=== PATIENT | female | born 1990 | race Caucasian/White ===

== ENCOUNTER 2020-12-24 22:25 | Observation (INO) | payer MEDICAID, SELFPAY ==
[2020-12-24 22:26] VITALS: BP 118/81; PULSE 75; RESP 16; TEMP 36.6; O2SAT 100; BMI 22.4
--- NOTE | 2020-12-24 22:59 | EDS_ITS ---
HPI History of Present Illness Chief Complaint: Substance Abuse Narrative Narrative: Patient presents for detox from opiates. Her last use of heroin was last night. She snorts and injects. Denies any infections. Has been through inpatient detox in June of last year. Denies . She does occasionally smoke marijuana otherwise no illicits. Denies alcohol use. Requesting detox that she has done on her own in the past [facility] Medical History (Updated 12/24/20 @ 23:12 by Xochitl Mcconnell) Fentanyl use disorder, mild, abuse Heroin abuse Hyperthyroidism Home Medications NK 12/24/20 [History Last Taken Unknown] Allergy/AdvReac Type Severity Reaction Status Date / Time tramadol AdvReac Rash Verified 12/24/20 22:28 Social History Smoking Status: Current every day smoker tobacco type: cigarettes ROS ROS ED ROS Narrative ROS General: Denies fever, chills, sweats Eyes: Denies visual changes, blurred vision, double vision ENT: Denies ear pain, rhinorrhea, sore throat Cardiovascular: Denies chest pain, palpitations, heart racing Respiratory: Denies dyspnea, cough, sputum, dyspnea on exertion, orthopnea,PND GI: Denies abdominal pain, nausea, vomiting, diarrhea, constipation, melena : Denies dysuria, hematuria, frequency Musculoskeletal: Denies myalgias, arthralgias, neck pain, back pain Skin: Denies rash, abscess, abrasions Neuro: Denies headache, weakness, paresthesia Psych: Denies depression, anxiety Endo: Denies polyuria, polydipsia, polyphagia Heme: Denies easy bruising, easy bleeding, lymphadenopathy Allergy: Denies hives, swelling EXAM Physical Exam Narrative Exam Narrative: Vital signs reviewed General: Well-nourished well-developed Head: Normocephalic atraumatic Eyes: Pupils equal round and reactive to light extraocular movements intact ENT: TMs clear no hemotympanum no trauma Neck: Nontender full range of motion Cardiovascular: Regular rate rhythm no murmurs normal S1-S2 Respiratory: No distress clear to auscultation bilaterally chest nontender Abdomen: Soft nontender nondistended normal bowel sounds no masses Back: Nontender no CVA tenderness Extremities: Nontender active range of motion ?4 extremities no trauma Skin: Track umanzor without infection Neuro alert oriented cranial nerves II through XII intact normal strength sensation reflexes Const Vital Signs: 12/24/20 22:26 12/25/20 00:03 Temperature 97.8 F 97.9 F Temperature Source Temporal Temporal Pulse Rate 75 73 Respiratory Rate 16 18 Blood Pressure 118/81 H 104/76 Blood Pressure Mean 93 85 Pulse Ox 100 98 Oxygen Delivery Method Room Air Room Air MDM MDM MDM Narrative Medical decision making narrative: Patient will undergo medical clearance with screening lab work. Will be discussed with detox and admitted if beds are available for opiate detox. There is availability. Urine drug screen showed positive opiates cocaine and cannabinoids. Otherwise lab work unremarkable. Patient will be admitted Lab Data Labs: Laboratory Results - last 24 hr 12/24/20 12/24/20 12/24/20 22:35 23:00 23:00 WBC 7.7 RBC 3.39 L Hgb 11.2 L Hct 33.9 L MCV 100.0 H MCH 33.0 H MCHC 33.0 RDW Std Deviation 54.0 H RDW Coeff of Georgi 14.6 Plt Count 331 MPV 8.9 Immature Gran % (Auto) 0.500 Neut % (Auto) 48.9 Lymph % (Auto) 39.7 [place] % (Auto) 7.4 Eos % (Auto) 2.7 Baso % (Auto) 0.8 Absolute Neuts (auto) 3.8 Absolute Lymphs (auto) 3.07 Nucleated RBC % 0 Sodium 138 Potassium 3.7 Chloride 104 Carbon Dioxide 32.0 Anion Gap 2 L BUN 12 Creatinine 1.04 H Estim Creat Clear Calc 60.77 Est GFR (MDRD) Af Amer 81 Est GFR (MDRD) Non-Af 67 BUN/Creatinine Ratio 11.5 Glucose 137 H Calcium 9.0 Serum , Qual Urine Opiates Screen POSITIVE H Urine Methadone Screen NEGATIVE Ur Barbiturates Screen NEGATIVE Ur Phencyclidine Scrn NEGATIVE Ur Amphetamines Screen NEGATIVE U Methamphetamin-MDMA NEGATIVE U Benzodiazepines Scrn NEGATIVE Urine Cocaine Screen POSITIVE H U Cannabinoids Screen POSITIVE H Ur Drug Screen Comment Ethyl Alcohol 12/24/20 12/24/20 23:00 23:00 WBC RBC Hgb Hct MCV MCH MCHC RDW Std Deviation RDW Coeff of Georgi Plt Count MPV Immature Gran % (Auto) Neut % (Auto) Lymph % (Auto) [place] % (Auto) Eos % (Auto) Baso % (Auto) Absolute Neuts (auto) Absolute Lymphs (auto) Nucleated RBC % Sodium Potassium Chloride Carbon Dioxide Anion Gap BUN Creatinine Estim Creat Clear Calc Est GFR (MDRD) Af Amer Est GFR (MDRD) Non-Af BUN/Creatinine Ratio Glucose Calcium Serum , Qual NEGATIVE Urine Opiates Screen Urine Methadone Screen Ur Barbiturates Screen Ur Phencyclidine Scrn Ur Amphetamines Screen U Methamphetamin-MDMA U Benzodiazepines Scrn Urine Cocaine Screen U Cannabinoids Screen Ur Drug Screen Comment Ethyl Alcohol 4.0 Discharge Plan Triage Chief Complaint: Substance Abuse ED Provider: Miguel Boyer Dx/Rx/DC Orders Clinical Impression: Opiate abuse, continuous Disposition Disposition: Acute Care Hospital [facility]
[2020-12-24 23:05] LABS: Absolute Lymphocyte Count 3.07 X10^3/uL (0.83-4.51); Absolute Neutrophil Count 3.8 X10^3/uL (2.0-7.7); Basophil# 0.06 X10^3/uL; Basophil% 0.8 % (0-1); Eosinophil# 0.21 X10^3/uL; Eosinophils% 2.7 % (0-5); Hematocrit 33.9 % (37-47); Hemoglobin 11.2 g/dL (12.0-15.0); Lymphocyte # 3.07 X10^3/ul (0.83-4.51); Lymphocyte % 39.7 % (19-41); Mean Platelet Vol. 8.9 fl (6.2-12.0); Monocyte# 0.57 X10^3/uL; Monocyte% 7.4 % (0-10); NRBC Flagged by Analyzer 0 % (0-5); Neutrophil # 3.78 X10^3/uL (2.7-7.7); Neutrophil % 48.9 % (47-70); Platelet Count 331 K/mm3 (150-450); RBC Distribution Width CV 14.6 % (11.6-14.6); Red Blood Count 3.39 M/mm3 (4.2-5.4); White Blood Count 7.7 K/mm3 (4.4-11.0)
[2020-12-24 23:25] LABS: Anion Gap 2 (5-15); BUN 12 mg/dL (7-18); BUN/Creat Ratio 11.5 RATIO (10-20); Chloride 104 mmol/L (98-107); Creatinine, Serum 1.04 mg/dL (0.55-1.02); EST Glomerular Filtration Rate 67 mL/min (>60); Est Glom Filt Rate - Afr Amer 81 mL/min (>60); Estimated Creatinine Clearance 60.77 ml/min; Glucose 137 mg/dL (74-106); Internal QC Validated? YES +Cl - CLEAR BKGD; Potassium 3.7 mmol/L (3.5-5.1); Pregnancy, Serum, hCG Quali. NEGATIVE Negative; Sodium Level 138 mmol/L (136-145)
[2020-12-25 00:03] VITALS: BP 104/76; PULSE 73; RESP 18; TEMP 36.6; O2SAT 98
[2020-12-25 00:10] LABS: Amphetamine Urine VISTA NEGATIVE (<1000 ng/mL); Barbiturate Urine VISTA NEGATIVE (< 200 ng/mL); Benzodiazepine Urine VISTA NEGATIVE (< 200 ng/mL); Cocaine Urine VISTA POSITIVE (< 300 ng/mL); Ecstacy Urine VISTA NEGATIVE (< 500 ng/mL); Methadone Urine VISTA NEGATIVE (< 300 ng/mL); PCP Urine VISTA NEGATIVE (< 25 ng/mL); THC Urine VISTA POSITIVE (< 50 ng/mL); Vista UDS pH Range 5
--- NOTE | 2020-12-25 00:26 | PCM.HP.STD ---
Documented by User: CAT Hill 12/25/20 00:35 HPI - General General Date of Admission: 12/25/20 HPI Narrative THIAGO GARCIA, is a 30 F who presents for detoxification from opioids. Patient states that she uses IV heroin and occasionally smokes marijuana along with smoking 1 pack/day of cigarettes. Patient tox screen positive for opiates, cocaine, cannabinoids. Patient states medical history includes hyperthyroidism although she is not currently taking medications for this. Patient reports runny nose, mild tremors, and chills. [facility] Medical History Fentanyl use disorder, mild, abuse Heroin abuse Hyperthyroidism Home Medications levothyroxine 150 mcg PO DAILY 12/25/20 [History Last Taken Unknown] Allergy/AdvReac Type Severity Reaction Status Date / Time tramadol AdvReac Rash Verified 12/24/20 22:28 Social History Smoking Status: Current every day smoker tobacco type: cigarettes ROS Constitutional Constitutional: Reports chills and excessive sweating; Denies anorexia, fever(s) or weakness ENT HEENT: Reports systems reviewed and no addt'l complaints, except as documented and rhinorrhea Cardiovascular Cardiovascular: Denies chest pain, edema or palpitations Respiratory/Chest Respiratory/Chest: Denies cough, shortness of breath at rest or shortness of breath with exertion Gastrointestinal Gastrointestinal: Denies abdominal pain, constipation, diarrhea, nausea or vomiting Genitourinary Genitourinary: Denies dysuria Musculoskeletal Musculoskeletal: Denies back pain or extremity pain Integumentary Integumentary: Denies dry skin Neurologic Neurologic: Denies abnormal gait, abnormal speech, confusion or dizziness Psychiatric Psychiatric: Denies anxiety or depression Endocrine Endocrinology: Denies change in body appearance Hematologic/Lymphatic Hematologic/Lymphatic: Denies easy bleeding or easy bruising Vital Signs Vital Signs Vital Signs: 12/24/20 22:26 12/25/20 00:03 Temperature 97.8 F 97.9 F Temperature Source Temporal Temporal Pulse Rate 75 73 Respiratory Rate 16 18 Blood Pressure 118/81 H 104/76 Blood Pressure Mean 93 85 Pulse Ox 100 98 Oxygen Delivery Method Room Air Room Air Weight Weight: 119 lb Body Mass Index (BMI) 22.4 Physical Exam Const alert and oriented x3 General Appearance: cooperative HEENT normocephalic and head/scalp atraumatic Neck supple and no JVD General: trachea midline Lymph Lymphatic: no lymphadenopathy noted Resp normal respiratory effort, normal air movement and clear to auscultation bilaterally Cardio regular rate, regular rhythm, S1 normal heart sound and S2 normal heart sound GI normal to inspection, nondistended, normoactive bowel sounds, soft to palpation and non-tender Extremity normal capillary refill and no clubbing, cyanosis or edema General Extremity: no tenderness to palpation of joints or extremities Skin General Skin Exam: no breakdown and turgor normal Lesions: no lesions Rashes: no rashes Neuro CN's II-XII intact bilaterally Psych thought process normal and cooperative Mood & Affect: anxious Lab / Micro Data Result Diagrams: 12/24/20 23:00 12/24/20 23:00 Labs: Laboratory Results - last 24 hr 12/24/20 12/24/20 12/24/20 22:35 23:00 23:00 WBC 7.7 RBC 3.39 L Hgb 11.2 L Hct 33.9 L MCV 100.0 H MCH 33.0 H MCHC 33.0 RDW Std Deviation 54.0 H RDW Coeff of Georgi 14.6 Plt Count 331 MPV 8.9 Immature Gran % (Auto) 0.500 Neut % (Auto) 48.9 Lymph % (Auto) 39.7 [place] % (Auto) 7.4 Eos % (Auto) 2.7 Baso % (Auto) 0.8 Absolute Neuts (auto) 3.8 Absolute Lymphs (auto) 3.07 Nucleated RBC % 0 Sodium 138 Potassium 3.7 Chloride 104 Carbon Dioxide 32.0 Anion Gap 2 L BUN 12 Creatinine 1.04 H Estim Creat Clear Calc 60.77 Est GFR (MDRD) Af Amer 81 Est GFR (MDRD) Non-Af 67 BUN/Creatinine Ratio 11.5 Glucose 137 H Calcium 9.0 Serum , Qual Urine Opiates Screen POSITIVE H Urine Methadone Screen NEGATIVE Ur Barbiturates Screen NEGATIVE Ur Phencyclidine Scrn NEGATIVE Ur Amphetamines Screen NEGATIVE U Methamphetamin-MDMA NEGATIVE U Benzodiazepines Scrn NEGATIVE Urine Cocaine Screen POSITIVE H U Cannabinoids Screen POSITIVE H Ur Drug Screen Comment Ethyl Alcohol 12/24/20 12/24/20 23:00 23:00 WBC RBC Hgb Hct MCV MCH MCHC RDW Std Deviation RDW Coeff of Georgi Plt Count MPV Immature Gran % (Auto) Neut % (Auto) Lymph % (Auto) [place] % (Auto) Eos % (Auto) Baso % (Auto) Absolute Neuts (auto) Absolute Lymphs (auto) Nucleated RBC % Sodium Potassium Chloride Carbon Dioxide Anion Gap BUN Creatinine Estim Creat Clear Calc Est GFR (MDRD) Af Amer Est GFR (MDRD) Non-Af BUN/Creatinine Ratio Glucose Calcium Serum , Qual NEGATIVE Urine Opiates Screen Urine Methadone Screen Ur Barbiturates Screen Ur Phencyclidine Scrn Ur Amphetamines Screen U Methamphetamin-MDMA U Benzodiazepines Scrn Urine Cocaine Screen U Cannabinoids Screen Ur Drug Screen Comment Ethyl Alcohol 4.0 Assessment & Plan Assessment/Plan (1) Opiate abuse, continuous: PLAN: 1. Opiate abuse -Admit to [facility] as part of [facility] program -Subutex taper ordered along with supportive medications for withdrawal -Vital signs per protocol -Oxygen therapy per protocol -Consult case management for coordination with [facility] outpatient treatment program 2. Tobacco abuse -NicoDerm patch daily ordered -Inpatient smoking cessation ordered 3. Hyperthyroidism -Patient currently does not take medications will check a TSH, T3 and T4 level 4. Marijuana use DVT prophylaxis-ambulation, no pharmacological prophylaxis indicated. This patient was seen by CAT Hill under the supervision of Dr. Strickland. Documented by User: Dr. Pedro Luis Strickland, 12/25/20 01:21 HPI - General General Date of Admission: 12/25/20 [facility] Medical History Fentanyl use disorder, mild, abuse Heroin abuse Hyperthyroidism Home Medications levothyroxine 150 mcg PO DAILY 12/25/20 [History Last Taken Unknown] Allergy/AdvReac Type Severity Reaction Status Date / Time tramadol AdvReac Rash Verified 12/24/20 22:28 Social History Smoking Status: Current every day smoker tobacco type: cigarettes Lab / Micro Data Result Diagrams: 12/24/20 23:00 12/24/20 23:00 Addendum Addendum: Patient was seen and examined today independently of Maximino Whitt, she came to the emergency room today at [facility] requesting services for opioid withdrawal, patient uses IV heroin, she is used illicit drugs since she was around 22 years old starting first with oral opiates and then progressing to IV heroin. Patient denies current amphetamine or methamphetamine usage, she denies alcohol intake currently. Patient last used fentanyl yesterday, she injects fentanyl. Patient is having some anxiety, runny nose, and some body aches at this time. Patient states that she has been through detox services before but never followed through as an outpatient the last time she went through detox. On examination she appeared mildly restless and anxious, she does not appear to be in any distress. Vital signs as documented. Skin warm and dry and without overt rashes. Neck without JVD, thyroid appears normal, trachea is midline, neck is supple. Lungs clear, normal air movement was noted. Heart exam notable for regular rhythm, normal sounds and absence of murmurs, rubs or gallops. Abdomen unremarkable and without evidence of organomegaly, masses, or abdominal aortic enlargement, bowel sounds are present in all 4 quadrants, no abdominal tenderness was noted. Extremities nonedematous, no cyanosis was noted, no clubbing was noted. Neuro: Cranial nerves II through XII are grossly intact, no focal motor deficits were noted, sensation to light touch and pinprick is intact, motor exam 5/5 throughout. Psych: Patient is alert and oriented x3, she does not appear anxious or depressed, she does not appear agitated. I have reviewed Maximino Whitt's history and physical including endorse it, patient will be admitted to [facility] for acute opioid withdrawal, orders were entered using the opioid withdrawal order set. Visit Charges Inpatient E&M: 61219 Init Hosp L3
[2020-12-25 00:36] VITALS: BP 93/68; PULSE 62; RESP 12; TEMP 36.4; O2SAT 100; BMI 21.9
[2020-12-25 02:09] LABS: T3 Total - Triiodothyronine 0.11 ng/mL (0.6-1.81)
[2020-12-25 04:02] LABS: T4 Total, Thyroxin 0.5 ug/dL (4.8-13.9)
[2020-12-25] MEDS: Buprenorphine HCl 2 MG TAB.SUBL SL ×3 (04:22→21:06)
[2020-12-25 05:41] VITALS: BP 92/64; PULSE 67; RESP 12; TEMP 36.7; O2SAT 97
[2020-12-25] MEDS: Gabapentin 300 MG Capsule PO ×2 (06:49→21:08)
[2020-12-25] MEDS: Ibuprofen 600 MG Tablet PO ×2 (08:51→21:07)
[2020-12-25] MEDS: Dicyclomine 10 MG Capsule 20 MG PO ×2 (08:51→21:06)
[2020-12-25] MEDS: hydrOXYzine PAM 25 MG Capsule 50 MG PO ×3 (08:52→23:23)
--- NOTE | 2020-12-25 09:14 | ADDICTION ---
This sba underwriter attempted to meet with PT. PT initially awoke to verbal queuing, however, fell asleep while this sba underwriter was explaining the program. She would not rouse to verbal queuing after falling back to sleep. This sba underwriter will attempt to meet with PT on 12/26/20.
--- NOTE | 2020-12-25 11:03 | PN.HOSP_ITS ---
Documented by User: Allison Christie SPREADER OPERATOR, SPREADER OPERATOR-C 12/25/20 11:19 Subjective Subjective Patient seen and examined. Drowsy during assessment, awakens briefly however falls asleep during conversation. States she feels tired and crappy. Objective Data Objective Data Vital Signs: Vital Signs Temp Pulse Resp BP Pulse Ox 98.0 F 67 12 92/64 97 12/25/20 05:41 12/25/20 05:41 12/25/20 05:41 12/25/20 05:41 12/25/20 05:41 Oxygen Delivery Method Room Air Weight: 115 lb 15.41 oz Body Mass Index (BMI) 21.9 Intake & Output: Intake and Output for Last 24 Hours 12/23/20 12/24/20 12/25/20 23:59 23:59 23:59 Intake Total 220 / 220 Balance 220 / 220 Lab / Micro Data Result Diagrams: 12/24/20 23:00 12/24/20 23:00 Labs: Laboratory Results - last 24 hr 12/24/20 12/24/20 12/24/20 22:35 23:00 23:00 WBC 7.7 RBC 3.39 L Hgb 11.2 L Hct 33.9 L MCV 100.0 H MCH 33.0 H MCHC 33.0 RDW Std Deviation 54.0 H RDW Coeff of Georgi 14.6 Plt Count 331 MPV 8.9 Immature Gran % (Auto) 0.500 Neut % (Auto) 48.9 Lymph % (Auto) 39.7 [place] % (Auto) 7.4 Eos % (Auto) 2.7 Baso % (Auto) 0.8 Absolute Neuts (auto) 3.8 Absolute Lymphs (auto) 3.07 Nucleated RBC % 0 Sodium 138 Potassium 3.7 Chloride 104 Carbon Dioxide 32.0 Anion Gap 2 L BUN 12 Creatinine 1.04 H Estim Creat Clear Calc 60.77 Est GFR (MDRD) Af Amer 81 Est GFR (MDRD) Non-Af 67 BUN/Creatinine Ratio 11.5 Glucose 137 H Calcium 9.0 TSH Thyroxine (T4) Total T3 Serum , Qual Urine Opiates Screen POSITIVE H Urine Methadone Screen NEGATIVE Ur Barbiturates Screen NEGATIVE Ur Phencyclidine Scrn NEGATIVE Ur Amphetamines Screen NEGATIVE U Methamphetamin-MDMA NEGATIVE U Benzodiazepines Scrn NEGATIVE Urine Cocaine Screen POSITIVE H U Cannabinoids Screen POSITIVE H Ur Drug Screen Comment Ethyl Alcohol 12/24/20 12/24/20 12/24/20 23:00 23:00 23:00 WBC RBC Hgb Hct MCV MCH MCHC RDW Std Deviation RDW Coeff of Georgi Plt Count MPV Immature Gran % (Auto) Neut % (Auto) Lymph % (Auto) [place] % (Auto) Eos % (Auto) Baso % (Auto) Absolute Neuts (auto) Absolute Lymphs (auto) Nucleated RBC % Sodium Potassium Chloride Carbon Dioxide Anion Gap BUN Creatinine Estim Creat Clear Calc Est GFR (MDRD) Af Amer Est GFR (MDRD) Non-Af BUN/Creatinine Ratio Glucose Calcium TSH Thyroxine (T4) Total T3 0.11 L Serum , Qual NEGATIVE Urine Opiates Screen Urine Methadone Screen Ur Barbiturates Screen Ur Phencyclidine Scrn Ur Amphetamines Screen U Methamphetamin-MDMA U Benzodiazepines Scrn Urine Cocaine Screen U Cannabinoids Screen Ur Drug Screen Comment Ethyl Alcohol 4.0 12/24/20 23:00 WBC RBC Hgb Hct MCV MCH MCHC RDW Std Deviation RDW Coeff of Georgi Plt Count MPV Immature Gran % (Auto) Neut % (Auto) Lymph % (Auto) [place] % (Auto) Eos % (Auto) Baso % (Auto) Absolute Neuts (auto) Absolute Lymphs (auto) Nucleated RBC % Sodium Potassium Chloride Carbon Dioxide Anion Gap BUN Creatinine Estim Creat Clear Calc Est GFR (MDRD) Af Amer Est GFR (MDRD) Non-Af BUN/Creatinine Ratio Glucose Calcium TSH 276.00 H Thyroxine (T4) 0.5 L Total T3 Serum , Qual Urine Opiates Screen Urine Methadone Screen Ur Barbiturates Screen Ur Phencyclidine Scrn Ur Amphetamines Screen U Methamphetamin-MDMA U Benzodiazepines Scrn Urine Cocaine Screen U Cannabinoids Screen Ur Drug Screen Comment Ethyl Alcohol Physical Exam Const oriented x3 and no apparent distress Constitutional Narrative: Drowsy Orientation / Consciousness: awake, oriented to person, oriented to place and oriented to time HEENT normocephalic and moist oral mucous membranes Eyes PERRL, EOMs intact bilaterally and conjunctivae normal Neck no lymphadenopathy Resp normal respiratory effort and clear to auscultation bilaterally Cardio regular rate, regular rhythm and no murmurs Peripheral Pulses: pulses 2+ throughout GI normal to inspection, nondistended, normoactive bowel sounds, non-tender and non-distended Extremity normal to inspection Skin no rashes or lesions noted Lesions: no lesions Rashes: no rashes Trauma: no lacerations or abrasions Neuro CN's II-XII intact bilaterally, no focal motor deficits, no sensory deficits noted and deep tendon reflexes 2+ bilaterally Psych Mood & Affect: flat affect Assessment & Plan Assessment/Plan (1) Opiate abuse, continuous: PLAN: 1. Opiate withdrawal, chronic opiate dependence-medical stabilization per protocol. Subutex taper. As needed regimen for somatic complaints. [employer] consulted. 2. Tobacco dependence-encouraged cessation. Nicotine replacement patch. 3. Hypothyroidism-not on regimen. TSH 276, T4 0.5, T3 0.11. Will begin Synthr oid dosing 1.6 mcg/kg, 75 mcg daily. Will need repeat thyroid function studies in 4 to 6 weeks as outpatient. 4. Polysubstance abuse-tox screen positive for opiates, cocaine and cannabinoids- [employer] consult. DVT prophylaxis-not indicated, low risk This patient was seen by CAT Bryson under the supervision of Dr. Navarro. Documented by User: Dr. Lo Navarro MD 12/25/20 13:33 Objective Data Lab / Micro Data Result Diagrams: 12/24/20 23:00 12/24/20 23:00 Charges/Coding Addendum Addendum: Patient seen by CAT Bryson under my supervision. Patient seen and examined. He has been managed for acute opioid withdrawal. She complains of sweating, fever and chills, abdominal cramps and generally feeling horrible. Review of systems otherwise negative. O/E: Const oriented x3 and no apparent distress Constitutional Narrative: Drowsy Orientation / Consciousness: awake, oriented to person, oriented to place and oriented to time HEENT normocephalic and moist oral mucous membranes Eyes PERRL, EOMs intact bilaterally and conjunctivae normal Neck no lymphadenopathy Resp normal respiratory effort and clear to auscultation bilaterally Cardio regular rate, regular rhythm and no murmurs Peripheral Pulses: pulses 2+ throughout GI normal to inspection, nondistended, normoactive bowel sounds, non-tender and non-distended Extremity normal to inspection Skin no rashes or lesions noted Lesions: no lesions Rashes: no rashes Trauma: no lacerations or abrasions Neuro CN's II-XII intact bilaterally, no focal motor deficits, no sensory deficits noted and deep tendon reflexes 2+ bilaterally Psych Mood & Affect: anxious Plan is to continue opiate withdrawal protocol with buprenorphine. Monitor CI NA score. Patient also has hypothyroidism with TSH markedly elevated at 276 in T4 and T3 suppressed. Patient started on Synthroid. To follow-up on outpatient basis with PCP. Patient is low risk for DVT. Encourage ambulation. Rest as per Allison Christie's note, which I have reviewed and endorsed. Visit Charges Inpatient E&M: 85356 Subs Hosp L2
[2020-12-25 11:33] LABS: T4 Free Direct 0.18 ng/dL (0.76-1.46)
[2020-12-25 12:29] VITALS: BP 84/47; PULSE 60; RESP 14; TEMP 36.9; O2SAT 99
[2020-12-25] MEDS: Ondansetron 8 MG Tablet PO ×2 (12:54→21:06)
--- NOTE | 2020-12-25 16:08 | CHAPLAIN ---
Type of Pastoral Visit ___ Initial Visit ___ Follow-up Visit ___ On-call Visit ___ General Patient Visit ___ Spiritual Assessment ___ Family Conference ___ Bereavement ___ Rapid Response ___ Code Blue ___ Other (describe below) Pastoral Care Referral From ___ Patient ___ Family ___ Nurse ___ Physician ___ Associate Professor Plant Pathology ___ Application Chemist ___ Other (describe below) Sacrament/Intervention ___ Active listening ___ Anointing ___ Yarsanism ___ Bereavement ___ Communion ___ Jennifer exploration ___ ___ Life review ___ Prayer ___ Reconciliation ___ Sacrament of Sick ___ Supportive presence ___ Wedding ___ Other (describe below) Pastoral Comments two attempts to meet with patient; pt is asleep and does not awaken to her name
[2020-12-25 16:51] VITALS: BP 91/56; PULSE 77; RESP 16; TEMP 36.9
[2020-12-25] MEDS: Methocarbamol 750 MG Tablet 1500 MG PO ×2 (16:59→23:23)
[2020-12-25 20:00] VITALS: BP 92/55; PULSE 63; RESP 14; TEMP 36.8; O2SAT 95
--- NOTE | 2020-12-26 01:52 | NURSING ---
soha rn charting reviewed
[2020-12-26 02:00] VITALS: BP 95/53; PULSE 60; RESP 12; TEMP 36.7; O2SAT 97
[2020-12-26] MEDS: Buprenorphine HCl 2 MG TAB.SUBL SL ×3 (04:32→20:41)
[2020-12-26] MEDS: Levothyroxine 75 MCG Tablet PO (05:49)
[2020-12-26] MEDS: hydrOXYzine PAM 25 MG Capsule 50 MG PO ×3 (05:49→18:30)
[2020-12-26] MEDS: Ibuprofen 600 MG Tablet PO ×2 (09:48→18:30)
[2020-12-26] MEDS: Dicyclomine 10 MG Capsule 20 MG PO ×2 (09:49→17:13)
[2020-12-26] MEDS: Gabapentin 300 MG Capsule PO ×2 (09:49→18:30)
[2020-12-26 10:00] VITALS: BP 91/54; PULSE 82; RESP 16; TEMP 36.8; O2SAT 97
--- NOTE | 2020-12-26 11:02 | ADDICTION ---
This credit underwriter met with PT to conduct ASAM, MSE, DUDIT, assessments and to plan for d/c. PT A+Ox4 and participated appropriately. All assessments completed, faxed to [facility], placed in PT's chart and copy given to PT by her request. PT plans [place] [facility] [place]/c for Vivitrol and IOP. PT to be transported by boyfriend who is also a detox PT with [facility] currently.
--- NOTE | 2020-12-26 12:59 | PCM.PN.HOSP ---
Documented by User: Allison Christie WATER FILTERER HELPER, WATER FILTERER HELPER-C 12/26/20 13:04 Subjective Subjective Patient seen and examined. More alert today. Reports that she feels generally unwell however denies specific complaints. Amendable to speak with [facility] today. Objective Data Objective Data Vital Signs: Vital Signs Temp Pulse Resp BP Pulse Ox 98.2 F 82 16 91/54 L 97 12/26/20 10:00 12/26/20 10:00 12/26/20 10:00 12/26/20 10:00 12/26/20 10:00 Oxygen Delivery Method Room Air Weight: 115 lb 15.41 oz Body Mass Index (BMI) 21.9 Intake & Output: Intake and Output for Last 24 Hours 12/24/20 12/25/20 12/26/20 23:59 23:59 23:59 Intake Total 220 / 700 960 / 960 Balance 220 / 700 960 / 960 Lab / Micro Data Result Diagrams: 12/24/20 23:00 12/24/20 23:00 Physical Exam Const alert, oriented x3 and no apparent distress Orientation / Consciousness: awake, oriented to person, oriented to place and oriented to time HEENT normocephalic and moist oral mucous membranes Eyes PERRL, EOMs intact bilaterally and conjunctivae normal Neck no lymphadenopathy Resp normal respiratory effort and clear to auscultation bilaterally Cardio regular rate, regular rhythm and no murmurs Peripheral Pulses: pulses 2+ throughout GI normal to inspection, nondistended, normoactive bowel sounds, non-tender and non-distended Extremity normal to inspection Skin no rashes or lesions noted Lesions: no lesions Rashes: no rashes Trauma: no lacerations or abrasions Neuro CN's II-XII intact bilaterally, no focal motor deficits, no sensory deficits noted and deep tendon reflexes 2+ bilaterally Psych mental status grossly normal and affect normal Assessment & Plan Assessment/Plan (1) Opiate abuse, continuous: PLAN: 1. Opiate withdrawal, chronic opiate dependence-medical stabilization per protocol. Subutex taper. As needed regimen for somatic complaints. [facility] consulted. 2. Tobacco dependence-encouraged cessation. Nicotine replacement patch. 3. Hypothyroidism-not on regimen. TSH 276, T4 0.5, T3 0.11. Initiated on Synthroid dosing 1.6 mcg/kg, 75 mcg daily. Will need repeat thyroid function studies in 4 to 6 weeks as outpatient. 4. Polysubstance abuse-tox screen positive for opiates, cocaine and cannabinoids- [facility] consulted. DVT prophylaxis-not indicated, low risk This patient was seen by CAT Bryson under the supervision of Dr. Navarro. Documented by User: Dr. Lo Navarro MD 12/26/20 13:25 Objective Data Lab / Micro Data Result Diagrams: 12/24/20 23:00 12/24/20 23:00 Charges/Coding Addendum Addendum: Patient seen by CAT Bryson under my supervision. Patient seen and examined. She still complains of feeling anxious. Cramps and chills have improved. Review of systems otherwise negative. O/E: Const oriented x3 and no apparent distress Constitutional Narrative: alert, less drowsy today Orientation / Consciousness: awake, oriented to person, oriented to place and oriented to time HEENT normocephalic and moist oral mucous membranes Eyes PERRL, EOMs intact bilaterally and conjunctivae normal Neck no lymphadenopathy Resp normal respiratory effort and clear to auscultation bilaterally Cardio regular rate, regular rhythm and no murmurs Peripheral Pulses: pulses 2+ throughout GI normal to inspection, nondistended, normoactive bowel sounds, non-tender and non-distended Extremity normal to inspection Skin no rashes or lesions noted Lesions: no lesions Rashes: no rashes Trauma: no lacerations or abrasions Neuro CN's II-XII intact bilaterally, no focal motor deficits, no sensory deficits noted and deep tendon reflexes 2+ bilaterally Psych Mood & Affect: anxious Plan is to continue opiate withdrawal protocol with buprenorphine. Monitor CINA score. on synthroid for hypothyroidism. To follow-up on outpatient basis with PCP. Patient is low risk for DVT. Encourage ambulation. To follow up with [facility] on outpatient basis for rehab services. Rest as per Allison Christie's note, which I have reviewed and endorsed. Visit Charges Inpatient E&M: 89936 Subs Hosp L2
[2020-12-26] MEDS: Methocarbamol 750 MG Tablet 1500 MG PO ×2 (14:31→23:07)
[2020-12-26 18:00] VITALS: BP 100/47; PULSE 66; RESP 16; TEMP 36.8; O2SAT 94
[2020-12-26 20:36] VITALS: BP 103/62; PULSE 60; RESP 18; TEMP 36.8; O2SAT 97
[2020-12-26] MEDS: Acetaminophen 500 MG Tablet PO (20:40)
[2020-12-26] MEDS: traZODone 100 MG Tablet PO (23:08)
[2020-12-27 03:19] VITALS: BP 92/55; PULSE 66; RESP 18; TEMP 36.4; O2SAT 92
[2020-12-27] MEDS: Buprenorphine HCl 2 MG TAB.SUBL SL (03:23)
[2020-12-27] MEDS: Gabapentin 300 MG Capsule PO (03:23)
[2020-12-27] MEDS: Ibuprofen 600 MG Tablet PO (06:21)
[2020-12-27] MEDS: Levothyroxine 75 MCG Tablet PO (06:21)
--- NOTE | 2020-12-27 10:51 | DCINST_ITS ---
Discharge Instructions Diet Discharge Diet: No restrictions Activity Discharge Activity: Return to Normal Activity Follow Up Care Test Results: Test results from this visit will be discussed in further detail at your follow-up appointment, if applicable. Discharge Plan Admission Admit Date/Time: 12/25/20 00:41 Primary Reason for Your Visit: Opiate abuse Attending Provider: Lo Navarro Instructions Additional Instructions / Restrictions: Follow-up with [facility] in [place] as scheduled for Vivitrol and intensive outpatient program. Discharge Orders/Prescriptions Prescriptions: Continued levothyroxine 150 mcg tablet 150 mcg PO DAILY RF: 0 Referrals / Follow Up: Bert BROWN [Other] - See Referral Note (As scheduled ) [facility] Doctor,Out of [NON-STAFF] - Disposition Disposition (needs filled in before D/C Order can be placed): Home, self care
--- NOTE | 2020-12-27 10:56 | PCM.DC.SUM ---
Documented by User: Allison Christie NP, REAL TIME ANALYST-C 12/27/20 11:00 Providers Date of Admission: 12/25/20 Date of Discharge: 12/27/20 Primary Care Physician: Bert BROWN Reason For Visit: OPIOID WITHDRAWL Diagnosis Discharge Diagnosis (1) Opiate abuse, continuous: Status: Acute Code(s): F11.10 - Opioid abuse, uncomplicated Medications at Discharge Home Medications levothyroxine 150 mcg PO DAILY 12/25/20 Hospital Course Operations None Procedures None Summary of Care Provided Minutes Spent on Discharge: 35 Hospital Course: Patient is a 30-year-old female admitted 12/25/2020 due to opiate withdrawal. 1. Opiate withdrawal, chronic opiate dependence-medical stabilization per protocol. Subutex taper during admission. Follow-up with [facility] in [place] as scheduled for [facility] and intensive outpatient program. 2. Tobacco dependence-encouraged cessation. 3. Hypothyroidism-not on regimen. TSH 276, T4 0.5, T3 0.11. Initiated on Synthroid dosing 1.6 mcg/kg, 75 mcg daily during admission however patient was previously on Synthroid 158 mcg daily however she had not been taking it. Continue previously prescribed Synthroid regimen. Will need repeat thyroid function studies in 4 to 6 weeks as outpatient. 4. Polysubstance abuse-tox screen positive for opiates, cocaine and cannabinoids. Physical Exam Const alert, oriented x3 and no apparent distress Orientation / Consciousness: awake, oriented to person, oriented to place and oriented to time HEENT normocephalic and moist oral mucous membranes Eyes PERRL, EOMs intact bilaterally and conjunctivae normal Neck no lymphadenopathy Resp normal respiratory effort and clear to auscultation bilaterally Cardio regular rate, regular rhythm and no murmurs Peripheral Pulses: pulses 2+ throughout GI normal to inspection, nondistended, normoactive bowel sounds, non-tender and non-distended Extremity normal to inspection Skin no rashes or lesions noted Lesions: no lesions Rashes: no rashes Trauma: no lacerations or abrasions Neuro CN's II-XII intact bilaterally, no focal motor deficits, no sensory deficits noted and deep tendon reflexes 2+ bilaterally Psych mental status grossly normal and affect normal Patient seen and examined prior to discharge. Physical assessment as noted above. Patient is stable for discharge with follow up recommendations as noted above. This patient was seen by CAT Bryson under the supervision of Dr. Navarro. ABG / Lab / Microbiology Data Result Diagrams: 12/24/20 23:00 12/24/20 23:00 D/C Instructions Discharge Diet: No restrictions Meaningful Use Info Meaningful Use Diagnoses (Choose all that apply): None applicable Discharge Plan Admission Admit Date/Time: 12/25/20 00:41 Primary Reason for Your Visit: Opiate abuse Attending Provider: Lo Navarro Instructions Additional Instructions / Restrictions: Follow-up with [facility] in [place] as scheduled for Vivitrol and intensive outpatient program. Discharge Orders/Prescriptions Prescriptions: Continued levothyroxine 150 mcg tablet 150 mcg PO DAILY RF: 0 Referrals / Follow Up: Bert BROWN [Other] - See Referral Note (As scheduled ) [facility] Doctor[facility] [NON-STAFF] - Disposition Disposition (needs filled in before D/C Order can be placed): Home, self care Documented by User: Dr. Lo Navarro MD 12/27/20 12:22 Providers Date of Admission: 12/25/20 Reason For Visit: OPIOID WITHDRAWL Medications at Discharge Home Medications levothyroxine 150 mcg PO DAILY 12/25/20 ABG / Lab / Microbiology Data Result Diagrams: 12/24/20 23:00 12/24/20 23:00 Discharge Plan Admission Admit Date/Time: 12/25/20 00:41 Primary Reason for Your Visit: Opiate abuse Attending Provider: Lo Navarro Instructions Additional Instructions / Restrictions: Follow-up with [facility] in [place] as scheduled for Vivitro and intensive outpatient program. Discharge Orders/Prescriptions Prescriptions: Continued levothyroxine 150 mcg tablet 150 mcg PO DAILY RF: 0 Referrals / Follow Up: Bert BROWN [Other] - See Referral Note (As scheduled ) [facility] PortilloOut of [NON-STAFF] - Disposition Disposition (needs filled in before D/C Order can be placed): Home, self care Charges/Coding Addendum Addendum: Patient seen by CAT Bryson under my supervision. Patient is a 27-umya-xuc-year-old female with a past medical history of polysubstance abuse who was admitted through the ED on 12/25/2020 for acute opiate withdrawal. Patient said she used IV heroin and also smoked marijuana as well as 1 pack of cigarettes daily. Urine tox was positive for opiates and cocaine as well as cannabinoids. Patient said her past medical history was significant for hypothyroidism. She was admitted and managed for acute opioid withdrawal and started on opiate withdrawal protocol with buprenorphine. She will noted to have markedly elevated TSH and low T3-T4 so was started on Synthroid. Patient did well over the 3-day detox process and remained stable. She was discharged home on 12/27/2020 for follow-up with the [facility] in [place] on outpatient basis as scheduled for [facility] and an outpatient program. Patient seen and examined prior to discharge. She had no complaints and felt well. Review of symptoms otherwise negative. Labs and vitals reviewed. Home medication reviewed and reconciled. O/E: onst alert, oriented x3 and no apparent distress Orientation / Consciousness: awake, oriented to person, oriented to place and oriented to time HEENT normocephalic and moist oral mucous membranes Eyes PERRL, EOMs intact bilaterally and conjunctivae normal Neck no lymphadenopathy Resp normal respiratory effort and clear to auscultation bilaterally Cardio regular rate, regular rhythm and no murmurs Peripheral Pulses: pulses 2+ throughout GI normal to inspection, nondistended, normoactive bowel sounds, non-tender and non-distended Extremity normal to inspection Skin no rashes or lesions noted Lesions: no lesions Rashes: no rashes Trauma: no lacerations or abrasions Neuro CN's II-XII intact bilaterally, no focal motor deficits, no sensory deficits noted and deep tendon reflexes 2+ bilaterally Psych mental status grossly normal and affect normal Plan is for discharge home today. Rest as per Allison Christian's note, which I have reviewed and endorsed. Visit Charges Inpatient E&M: 93607 Disch Hosp
[2020-12-27 11:00] VITALS: BP 99/61; PULSE 73; RESP 18; TEMP 36.7; O2SAT 95
== END 2020-12-27 12:28 | disposition home or self-care (01) ==
LOC: ED 23:07 → PCU 12-25 00:27
PROVIDERS: Nurse Practitioner Family; Admitting Provider Internal Medicine; Emergency Provider Emergency Medicine; Visit Provider Student in an Organized Health Care Education/Training Program
DX: F11.23 Opioid dependence with withdrawal (principal); E03.9 Hypothyroidism, unspecified; F14.10 Cocaine abuse, uncomplicated; F12.10 Cannabis abuse, uncomplicated; F17.210 Nicotine dependence, cigarettes, uncomplicated; Z79.899 Other long term (current) drug therapy
CPT/HCPCS: 36415; 80048; 80307; 82077; 84436; 84439; 84443; 84480; 84703; 85025; 97802; 99283; 99406; H0012